=== PATIENT | female | born 1930 | race Caucasian/White ===

== ENCOUNTER → 2016-04-26 | Outpatient (CLI) | payer MEDICARE, OTHER ==
[~2016-04-26] MED LIST: ACIPHEX20 MG PO; ADVAIR 100-501 EACH INH; AMITIZA8 MCG PO; B-12500 MCG PO; CRESTOR5 MG PO; D3-5050000 UNIT PO; DILTIAZEM 24HR120 MG PO; ESTROGEL50 GM TD; EVISTA60 MG PO; FLEXERIL 10 MG10 MG PO; FOLIC ACID 1 MG1 MG PO; INVANZ1 GM IV; NORCO 10-325 T1 EACH PO; PYRIDIUM PO; ROCEPHIN 1 GM AD1 GM IV; SINEMET 10-1001 EACH PO; SYNTHROID150 MCG PO; TOPROL XL 50 MG50 MG PO; TOVIAZ4 MG PO; ZOLOFT50 MG PO; [UNRECOGNIZED DRUG - REMARK] IV
== END ==
LOC: RAD 14:07
DX: M25.551 Pain in right hip (principal)
CPT/HCPCS: 73502

== ENCOUNTER → 2016-05-12 | Outpatient (CLI) | payer MEDICARE, OTHER | LOC: OPSV 09:54 | DX: Z45.9 Encounter for adjustment and management of unspecified implanted device (principal); D83.9 Common variable immunodeficiency, unspecified | CPT/HCPCS: 96365; 96366; J1572; J1642 ==

== ENCOUNTER → 2016-06-09 | Outpatient (CLI) | payer MEDICARE, OTHER ==
[~2016-06-09] VITALS: Ht 167.6 cm; Wt 83.0 kg
== END ==
LOC: OPSV 09:41
PROVIDERS: Internal Medicine Nephrology
DX: N18.3 Chronic kidney disease, stage 3 (moderate) (principal); D83.9 Common variable immunodeficiency, unspecified
CPT/HCPCS: 36591; 80048; 82043; 82570; 96365; 96366; J1568; J1572; J1642

== ENCOUNTER → 2016-06-20 | Outpatient (CLI) | payer MEDICARE, OTHER ==
[2016-06-20 12:29] LABS: HEMOGLOBIN 10.5 gm/dl (12.3-15.3); RED BLOOD COUNT 3.45 M/UL (4.00-5.10); WHITE BLOOD COUNT 12.5 K/UL (4.5-11.0)
== END ==
LOC: OPSV2 10:30
PROVIDERS: Internal Medicine; Orthopaedic Surgery
DX: Z01.812 Encounter for preprocedural laboratory examination (principal); Z01.810 Encounter for preprocedural cardiovascular examination; Z01.818 Encounter for other preprocedural examination; M16.11 Unilateral primary osteoarthritis, right hip; Z88.0 Allergy status to penicillin; Z88.5 Allergy status to narcotic agent; Z88.8 Allergy status to other drugs, medicaments and biological substances; R53.83 Other fatigue; M06.09 Rheumatoid arthritis without rheumatoid factor, multiple sites; M19.93 Secondary osteoarthritis, unspecified site; Z79.899 Other long term (current) drug therapy; M81.0 Age-related osteoporosis without current pathological fracture; N18.9 Chronic kidney disease, unspecified; M54.5 Low back pain; I10 Essential (primary) hypertension; J98.4 Other disorders of lung
CPT/HCPCS: 71020; 80053; 80074; 81001; 85027; 87081; 87086; 93005; J1642

== ENCOUNTER 2016-07-04 06:03 | Inpatient (IN) | payer MEDICARE, OTHER ==
[~2016-07-04] VITALS: Ht 167.6 cm; Wt 75.8 kg
[~2016-07-04 06:03] MED LIST changes: -INVANZ1 GM IV; -PYRIDIUM PO; -ROCEPHIN 1 GM AD1 GM IV; -[UNRECOGNIZED DRUG - REMARK] IV
[2016-07-04] MEDS ORDERED: [UNRECOGNIZED DRUG - REMARK] IV (07:58)
[2016-07-04] MEDS ORDERED: PYRIDIUM PO (07:59)
[2016-07-04] MEDS ORDERED: ROCEPHIN 1 GM AD1 GM IV (07:59)
[2016-07-04] MEDS ORDERED: INVANZ1 GM IV (08:00)
[2016-07-05 05:39] LABS: HEMOGLOBIN 9.2 gm/dl (12.3-15.3); RED BLOOD COUNT 3.09 M/UL (4.00-5.10); WHITE BLOOD COUNT 10.7 K/UL (4.5-11.0)
[2016-07-05 05:58] LABS: BUN/CREATININE RATIO 20 (0-10)
[2016-07-06 05:55] LABS: HEMOGLOBIN 9.3 gm/dl (12.3-15.3); RED BLOOD COUNT 3.11 M/UL (4.00-5.10); WHITE BLOOD COUNT 12.8 K/UL (4.5-11.0)
[2016-07-06 06:13] LABS: BUN/CREATININE RATIO 13 (0-10)
[2016-07-07 05:43] LABS: RED BLOOD COUNT 3.02 M/UL (4.00-5.10); WHITE BLOOD COUNT 10.7 K/UL (4.5-11.0)
[2016-07-07 06:02] LABS: BUN/CREATININE RATIO 19 (0-10)
== END 2016-07-07 16:27 | DRG 470 ==
LOC: ZOBSOF 06:03 → M/S 17:38
PROVIDERS: Internal Medicine; ADMIT Orthopaedic Surgery
PROC: 0SR902A Replacement of Right Hip Joint with Metal on Polyethylene Synthetic Substitute, Uncemented, Open Approach (ICD-10-PCS; principal; 2016-07-04 08:15)
DX: M16.11 Unilateral primary osteoarthritis, right hip (principal); D83.9 Common variable immunodeficiency, unspecified; J98.11 Atelectasis; M06.9 Rheumatoid arthritis, unspecified; I12.9 Hypertensive chronic kidney disease with stage 1 through stage 4 chronic kidney disease, or unspecified chronic kidney disease; N18.3 Chronic kidney disease, stage 3 (moderate); J45.909 Unspecified asthma, uncomplicated; R63.4 Abnormal weight loss; R50.82 Postprocedural fever; Z91.81 History of falling; Z88.6 Allergy status to analgesic agent; Z88.5 Allergy status to narcotic agent; Z88.0 Allergy status to penicillin; Z80.9 Family history of malignant neoplasm, unspecified; Z68.26 Body mass index [BMI] 26.0-26.9, adult
CPT/HCPCS: 36415; 71020; 72170; 80048; 80051; 81001; 82565; 84520; 85025; 85027; 86850; 86900; 86901; 87077; 87086; 87186; 94664; 97110; 97116; 97530; C1776; J1572; J1642; J2250; J2270; J2405; J2795; J3010; J3370; J7030; J7070; J7120; Q0162

== ENCOUNTER → 2016-08-04 | Outpatient (CLI) | payer MEDICARE, OTHER ==
[~2016-08-04] VITALS: Ht 167.6 cm; Wt 83.0 kg
[~2016-08-04] MED LIST changes: +INVANZ1 GM IV; +PYRIDIUM PO; +ROCEPHIN 1 GM AD1 GM IV; +[UNRECOGNIZED DRUG - REMARK] IV
== END ==
LOC: OPSV 08-03 10:00
PROVIDERS: Internal Medicine Nephrology
DX: Z45.9 Encounter for adjustment and management of unspecified implanted device (principal); N18.3 Chronic kidney disease, stage 3 (moderate); D83.9 Common variable immunodeficiency, unspecified
CPT/HCPCS: 36591; 80048; 96365; 96366; J1568; J1642